=== PATIENT | male | born 1950 | race Caucasian/White ===

== ENCOUNTER 2021-04-14 06:25 | Emergency (ER) | payer MEDICARE, BC ==
[~2021-04-14] VITALS: Ht 175.3 cm; Wt 78.4 kg
[2021-04-14] MEDS ORDERED: ondansetron/PF 4mg/2ml inj IV ONE (06:35)
[2021-04-14] MEDS ORDERED: ondansetron 4mg rapidly disintigrating tab PO ONE (06:35)
[2021-04-14] MEDS ORDERED: normal saline 1000ML IV soln IVB ONE ×2 (06:35→12:40)
[2021-04-14 07:05] LABS: BASOPHILS % (AUTO) 0 % (0-1); EOSINOPHILS # (AUTO) 0.5 X10'3 (0-0.9); HEMOGLOBIN 15.3 g/dl (14.0-17.9); LYMPHOCYTES % (AUTO) 15.3 % (21-51); MEAN CORPUSCULAR HEMOGLOBIN 29.7 PG (27.0-31.0); MEAN CORPUSCULAR HGB CONC 33.2 g/dL (33.0-36.5); MEAN CORPUSCULAR VOLUME 89.3 FL (78-98); MEAN PLATELET VOLUME 8.4 FL (7.4-10.4); MONOCYTES # (AUTO) 0.9 X10'3 (0-0.9); MONOCYTES % (AUTO) 13.9 % (2-12); NEUTROPHILS # (AUTO) 4.2 X10'3 (1.8-7.7); NEUTROPHILS % (AUTO) 62.8 % (42-75); PLATELET COUNT 319 X10'3 (140-440); RED BLOOD COUNT 5.15 X10'6 (4.70-6.10); RED CELL DISTRIBUTION WIDTH 14.1 % (11.5-14.5); WHITE BLOOD COUNT 6.7 X10'3 (4.5-11.0)
[2021-04-14 07:21] LABS: ALANINE AMINOTRANSFERASE 13 U/L (12-78); ALBUMIN 3.3 G/DL (3.4-5.0); ALBUMIN/GLOBULIN RATIO 0.8 (1.1-1.5); ALKALINE PHOSPHATASE 132 IU/L (46-116); ANION GAP 11 (8-16); ASPARTATE AMINO TRANSFERASE 5 U/L (10-37); BILIRUBIN,TOTAL 0.4 MG/DL (0.1-1.0); BLOOD UREA NITROGEN 17 MG/DL (7-18); BUN/CREATININE RATIO 19.8 (5.4-32.0); CALCIUM 8.8 MG/DL (8.5-10.1); CHLORIDE 105 MMOL/L (99-107); CREATININE 0.86 MG/DL (0.60-1.10); GLUCOSE 171 MG/DL (70-104); POTASSIUM 4.1 MMOL/L (3.5-5.1); SODIUM 140 MMOL/L (135-145); TOTAL CARBON DIOXIDE 23.6 MMOL/L (24-32); TOTAL PROTEIN 7.3 G/DL (6.4-8.2); eGFR 88 ML/MIN
[2021-04-14 07:32] LABS: CHOL/HDL RATIO 4.1 (0.00-4.99); CHOLESTEROL 123 MG/DL (0-200); HDL CHOLESTEROL 30 MG/DL (35-60); LDL CHOLESTEROL 68 MG/DL (50-100); LIPASE < 50 U/L (73-393); MAGNESIUM 1.4 MG/DL (1.5-2.4); TRIGLYCERIDES 73 MG/DL (20-135)
[2021-04-14 08:03] LABS: HEMOGLOBIN A1C 6.2 % (4.5-6.2)
[2021-04-14 08:57] LABS: CREATINE KINASE 24 U/L (39-308)
[2021-04-14 09:50] LABS: FERRITIN 368 NG/ML (26-388); LACTATE DEHYDROGENASE 123 U/L (85-227)
[2021-04-14] MEDS: diatr meglu/diatrizoate 30ml oral sol.-(3 dose) bottle PO SCH ×3 (10:35→10:37)
[2021-04-14] MEDS ORDERED: iohexol 300mg/ml 100ml inj. ONE (10:47)
[2021-04-14 11:11] LABS: D-DIMER 0.87 MG/L FEU (0-0.50); PARTIAL THROMBOPLASTIN TIME 33 SECONDS (22-32)
[2021-04-14] MEDS ORDERED: magnesium 2GM in 50ml NS 50 ML IV ONE (11:15)
[2021-04-14 12:09] LABS: RHEUM FACTOR QUAL REFLEX TITER NEGATIVE (Neg)
[2021-04-14] MEDS ORDERED: METO-292 PO (12:39)
[2021-04-14] MEDS ORDERED: MAGN250T29 PO (12:39)
[2021-04-14] MEDS ORDERED: METF-438 PO (12:39)
[2021-04-14] MEDS ORDERED: PANT20TA18 PO (12:39)
[2021-04-14] MEDS ORDERED: metoclopramide 5 mg/ml inj IV ONE (12:40)
[2021-04-14] MEDS ORDERED: magnesium oxide 400mg tablet PO ONE (12:40)
[2021-04-14] MEDS ORDERED: pantoprazole 40 MG vial IV ONE (12:40)
[2021-04-14 13:57] VITALS: BP 106/67
[2021-04-15] MEDS ORDERED: MESSAGE TO NURSING PO NR (10:00)
== END 2021-04-14 14:13 | disposition home or self-care (01) ==
LOC: ER 06:27
DX: K29.70 Gastritis, unspecified, without bleeding (principal); R10.84 Generalized abdominal pain; E83.42 Hypomagnesemia; R19.7 Diarrhea, unspecified; R11.10 Vomiting, unspecified; E11.9 Type 2 diabetes mellitus without complications; Z72.89 Other problems related to lifestyle; Z88.1 Allergy status to other antibiotic agents; Z88.8 Allergy status to other drugs, medicaments and biological substances; Z79.899 Other long term (current) drug therapy
CPT/HCPCS: 36415; 74177; 80053; 80061; 82550; 82553; 82607; 82728; 83036; 83605; 83615; 83690; 83735; 83874; 84145; 84153; 84443; 84484; 85025; 85379; 85384; 85610; 85651; 85730; 86038; 86140; 86225; 86430; 86618; 86788; 86789; 87040; 96365; 96375; 99285; C9113; J2765; J3475; J7030; Q9963; Q9967

== ENCOUNTER 2021-07-07 16:24 | Emergency (ER) | payer MEDICARE, BC ==
[~2021-07-07] VITALS: Ht 175.3 cm; Wt 77.3 kg
[~2021-07-07 16:24] MED LIST: MAGN250T29 PO; METF-438 PO; METO-292 PO; PANT20TA18 PO
[2021-07-07] MEDS ORDERED: CASIRIVIMAB/IMDEVIMAB inject. 10 ML in normal saline 100ml IV soln 100 ML IV ONE (16:35)
[2021-07-07] MEDS ORDERED: acetaminophen 325mg tablet PO STA (16:35)
[2021-07-07] MEDS ORDERED: BAMLANIVIMAB 700MG, ETESEVIMAB 1,400MG in NS 100mL (Total vol 160ml) IV ONE (16:45)
[2021-07-07 17:13] LABS: LYMPHOCYTES # (AUTO) 0.8 X10'3 (1.1-4.8)
[2021-07-07 17:14] LABS: BASOPHILS % (AUTO) 0.8 % (0-1); EOSINOPHILS % (AUTO) 0.1 % (0-6); HEMATOCRIT 39.1 % (42.0-52.0); HEMOGLOBIN 13.3 g/dl (14.0-17.9); LYMPHOCYTES % (AUTO) 36.2 % (21-51); MEAN CORPUSCULAR HEMOGLOBIN 29.7 PG (27.0-31.0); MEAN CORPUSCULAR VOLUME 87.2 FL (78-98); MEAN PLATELET VOLUME 8.4 FL (7.4-10.4); MONOCYTES # (AUTO) 0.2 X10'3 (0-0.9); MONOCYTES % (AUTO) 8.5 % (2-12); NEUTROPHILS # (AUTO) 1.1 X10'3 (1.8-7.7); NEUTROPHILS % (AUTO) 54.4 % (42-75); PLATELET COUNT 134 X10'3 (140-440); RED BLOOD COUNT 4.48 X10'6 (4.70-6.10); RED CELL DISTRIBUTION WIDTH 15.4 % (11.5-14.5); WHITE BLOOD COUNT 2.1 X10'3 (4.5-11.0)
[2021-07-07] MEDS ORDERED: aspirin 81mg tab.chew PO ONE (17:15)
[2021-07-07 17:22] LABS: D-DIMER 0.56 MG/L FEU (0-0.50)
[2021-07-07 17:26] LABS: ALANINE AMINOTRANSFERASE 43 U/L (12-78); ALBUMIN 3.4 G/DL (3.4-5.0); ALBUMIN/GLOBULIN RATIO 0.9 (1.1-1.5); ALKALINE PHOSPHATASE 66 IU/L (46-116); ANION GAP 9 (8-16); ASPARTATE AMINO TRANSFERASE 44 U/L (10-37); BILIRUBIN,TOTAL 0.2 MG/DL (0.1-1.0); BLOOD UREA NITROGEN 20 MG/DL (7-18); C-REACTIVE PROTEIN 7.66 MG/DL (0.0-0.5); CALCIUM 8.4 MG/DL (8.5-10.1); CHLORIDE 103 MMOL/L (99-107); CREATININE 0.87 MG/DL (0.60-1.10); GLUCOSE 105 MG/DL (70-104); MAGNESIUM 2.1 MG/DL (1.5-2.4); POTASSIUM 4.4 MMOL/L (3.5-5.1); SODIUM 140 MMOL/L (135-145); TOTAL CARBON DIOXIDE 28.2 MMOL/L (24-32); TOTAL PROTEIN 7.4 G/DL (6.4-8.2); eGFR 87 ML/MIN
[2021-07-07 19:08] VITALS: BP 130/80
[2021-07-07 19:56] LABS: TOTAL CELLS COUNTED 100
[2021-07-07 19:59] LABS: PLATELET ESTIMATE DECREASED
== END 2021-07-07 19:09 | disposition home or self-care (01) ==
LOC: ER 16:25
DX: U07.1 COVID-19 (principal); B34.9 Viral infection, unspecified; R50.9 Fever, unspecified; R10.84 Generalized abdominal pain; D72.819 Decreased white blood cell count, unspecified; E11.9 Type 2 diabetes mellitus without complications; Z72.89 Other problems related to lifestyle; Z88.1 Allergy status to other antibiotic agents; Z88.8 Allergy status to other drugs, medicaments and biological substances; Z79.899 Other long term (current) drug therapy
CPT/HCPCS: 36415; 71045; 80053; 83735; 84145; 85007; 85025; 85379; 86140; 99291; M0245; Q0245; Q0239

== ENCOUNTER 2022-01-16 07:46 | Emergency (ER) | payer MEDICARE, BC ==
[~2022-01-16] VITALS: Ht 175.3 cm; Wt 87.7 kg
[2022-01-16 08:45] LABS: CLARITY,URINE CLEAR (Clear); COLOR,URINE YELLOW (Yellow); GLUCOSE, URINE >=1000 mg/dl (Neg); KETONES,URINE NEGATIVE (Neg); LEUKOCYTE ESTERASE ,URINE NEGATIVE (Neg); NITRITES, URINE NEGATIVE (Neg); OCCULT BLOOD,URINE NEGATIVE (Neg); PH,URINE 5.5 (4.8-8.0); PROTEIN,URINE NEGATIVE (Neg); UROBILINOGEN,URINE 0.2 E.U/dL (0.2-1.0)
[2022-01-16 08:46] LABS: UA COLLECTION TYPE VOIDED
[2022-01-16 08:49] LABS: BACTERIA,URINE NONE SEEN /HPF (Neg); RBC,URINE NONE SEEN /HPF (0-2); SQUAMOUS EPITHELIAL CELL,UR NONE SEEN /LPF (FEW); WBC,URINE NONE SEEN /HPF (0-4)
[2022-01-16 08:50] LABS: ALANINE AMINOTRANSFERASE 26 U/L (12-78); ALBUMIN 3.9 G/DL (3.4-5.0); ALBUMIN/GLOBULIN RATIO 1.1 (1.1-1.5); ALKALINE PHOSPHATASE 64 IU/L (46-116); ANION GAP 13 (8-16); ASPARTATE AMINO TRANSFERASE 11 U/L (10-37); BILIRUBIN,TOTAL 0.4 MG/DL (0.1-1.0); BLOOD UREA NITROGEN 21 MG/DL (7-18); BUN/CREATININE RATIO 23.6 (5.4-32.0); CALCIUM 8.9 MG/DL (8.5-10.1); CHLORIDE 106 MMOL/L (99-107); CREATININE 0.89 MG/DL (0.60-1.10); GLUCOSE 217 MG/DL (70-104); POTASSIUM 4.2 MMOL/L (3.5-5.1); SODIUM 142 MMOL/L (135-145); TOTAL CARBON DIOXIDE 23.4 MMOL/L (24-32); TOTAL PROTEIN 7.4 G/DL (6.4-8.2); eGFR 85 ML/MIN
[2022-01-16 08:54] LABS: BASOPHILS % (AUTO) 0.5 % (0-1); EOSINOPHILS # (AUTO) 0.2 X10'3 (0-0.9); EOSINOPHILS % (AUTO) 2.9 % (0-6); HEMATOCRIT 43.7 % (42.0-52.0); HEMOGLOBIN 14.5 g/dl (14.0-17.9); LYMPHOCYTES # (AUTO) 1.6 X10'3 (1.1-4.8); LYMPHOCYTES % (AUTO) 28.2 % (21-51); MEAN CORPUSCULAR HEMOGLOBIN 30.3 PG (27.0-31.0); MEAN CORPUSCULAR HGB CONC 33.2 g/dL (33.0-36.5); MEAN CORPUSCULAR VOLUME 91.3 FL (78-98); MEAN PLATELET VOLUME 8.9 FL (7.4-10.4); MONOCYTES # (AUTO) 0.6 X10'3 (0-0.9); MONOCYTES % (AUTO) 10.8 % (2-12); NEUTROPHILS # (AUTO) 3.3 X10'3 (1.8-7.7); NEUTROPHILS % (AUTO) 57.6 % (42-75); PLATELET COUNT 235 X10'3 (140-440); RED BLOOD COUNT 4.79 X10'6 (4.70-6.10); RED CELL DISTRIBUTION WIDTH 13.5 % (11.5-14.5); WHITE BLOOD COUNT 5.6 X10'3 (4.5-11.0)
--- NOTE | 2022-01-16 10:10 | NUR ---
pt in MRI.
[2022-01-16 12:24] VITALS: BP 125/68
== END 2022-01-16 14:04 | disposition home or self-care (01) ==
LOC: ER 07:47
DX: M50.90 Cervical disc disorder, unspecified, unspecified cervical region (principal); M54.12 Radiculopathy, cervical region; R53.1 Weakness; R51.9 Headache, unspecified; M54.50 Low back pain, unspecified; E11.9 Type 2 diabetes mellitus without complications; Z72.89 Other problems related to lifestyle; Z88.1 Allergy status to other antibiotic agents; Z88.8 Allergy status to other drugs, medicaments and biological substances; Z79.899 Other long term (current) drug therapy
CPT/HCPCS: 36415; 70551; 71045; 72141; 72146; 72148; 80053; 81001; 84145; 84484; 85025; 85651; 86140; 93005; 99285

== ENCOUNTER 2023-02-24 18:01 | Emergency (ER) | payer MEDICARE, BC ==
[~2023-02-24] VITALS: Ht 177.8 cm; Wt 86.4 kg
[2023-02-24] MEDS ORDERED: IOHEXOL 12MG/ML oral solution 500 ML BOTTLE PO ONE (18:05)
[2023-02-24] MEDS ORDERED: normal saline 1000ML IV soln IVB ONE (18:05)
[2023-02-24] MEDS ORDERED: ondansetron inj. 24 MG in normal saline 250ml IV soln 228 ML IV SCH (18:15)
[2023-02-24 18:48] LABS: BASOPHILS # (AUTO) 0.1 X10'3 (0-0.2); BASOPHILS % (AUTO) 0.8 % (0-1); EOSINOPHILS # (AUTO) 0.9 X10'3 (0-0.9); EOSINOPHILS % (AUTO) 13.2 % (0-6); HEMATOCRIT 43.2 % (42.0-52.0); HEMOGLOBIN 14.6 g/dl (14.0-17.9); LYMPHOCYTES # (AUTO) 2.2 X10'3 (1.1-4.8); LYMPHOCYTES % (AUTO) 33.6 % (21-51); MEAN CORPUSCULAR HEMOGLOBIN 30.8 PG (27.0-31.0); MEAN CORPUSCULAR HGB CONC 33.7 g/dL (33.0-36.5); MEAN CORPUSCULAR VOLUME 91.5 FL (78-98); MEAN PLATELET VOLUME 8.7 FL (7.4-10.4); MONOCYTES # (AUTO) 0.7 X10'3 (0-0.9); MONOCYTES % (AUTO) 11.3 % (2-12); NEUTROPHILS # (AUTO) 2.7 X10'3 (1.8-7.7); NEUTROPHILS % (AUTO) 41.1 % (42-75); PLATELET COUNT 266 X10'3 (140-440); RED BLOOD COUNT 4.72 X10'6 (4.70-6.10); RED CELL DISTRIBUTION WIDTH 14.3 % (11.5-14.5); WHITE BLOOD COUNT 6.5 X10'3 (4.5-11.0)
[2023-02-24 18:58] LABS: ALANINE AMINOTRANSFERASE 26 U/L (12-78); ALBUMIN 4.2 G/DL (3.4-5.0); ALBUMIN/GLOBULIN RATIO 1.3 (1.1-1.5); ALKALINE PHOSPHATASE 68 IU/L (46-116); AMYLASE 29 U/L (25-115); ANION GAP 11 (8-16); ASPARTATE AMINO TRANSFERASE 14 U/L (10-37); BILIRUBIN,TOTAL 0.5 MG/DL (0.1-1.0); BLOOD UREA NITROGEN 16 MG/DL (7-18); BUN/CREATININE RATIO 18.2 (10.0-20.0); C-REACTIVE PROTEIN 0.08 MG/DL (0.0-0.5); CHLORIDE 103 MMOL/L (99-107); CREATININE 0.88 MG/DL (0.60-1.10); GLUCOSE 168 MG/DL (70-104); LACTATE DEHYDROGENASE 124 U/L (85-227); LIPASE 51 U/L (73-393); MAGNESIUM 1.6 MG/DL (1.5-2.4); SODIUM 142 MMOL/L (135-145); TOTAL CARBON DIOXIDE 27.8 MMOL/L (24-32); TOTAL PROTEIN 7.4 G/DL (6.4-8.2); eGFR 85 ML/MIN
[2023-02-24 19:10] LABS: CALCIUM 9.5 MG/DL (8.5-10.1)
[2023-02-24] MEDS ORDERED: magnesium oxide 400mg tablet PO ONE (19:20)
[2023-02-24] MEDS ORDERED: iohexol 300mg/ml 100ml inj. ONE (19:40)
[2023-02-24 21:45] VITALS: BP 138/75
== END 2023-02-24 21:30 | disposition home or self-care (01) ==
LOC: ER 18:01
DX: K86.2 Cyst of pancreas (principal); E83.42 Hypomagnesemia; E11.9 Type 2 diabetes mellitus without complications; Z88.1 Allergy status to other antibiotic agents; Z79.899 Other long term (current) drug therapy
CPT/HCPCS: 36415; 74178; 80053; 82150; 83615; 83690; 83735; 84145; 85025; 85651; 86140; 96360; 99285; J3490; J7030; Q9967; 99284